=== PATIENT | female | born 1960 | race African-American/Black ===

== ENCOUNTER 2016-11-14 07:53 | Inpatient (IN) | payer MEDICAID ==
[~2016-11-14] VITALS: Ht 157.5 cm; Wt 54.4 kg
[~2016-11-14 07:53] MED LIST: VIC PO
[2016-11-14 08:00] VITALS: BP 135/89
--- NOTE | 2016-11-14 08:04 | NUR ---
Pt placed in bed 8.
[2016-11-14] MEDS ORDERED: NITROGLYCERIN 0.4 MG TAB SL ONE (08:10)
[2016-11-14] MEDS ORDERED: ASPIRIN 81 MG TAB.CHEW PO ONE (08:10)
--- NOTE | 2016-11-14 08:10 | NUR ---
55/F presents to the emergency department with c/o right upper chest pain radiating to right posterior shoulder for approximately the past 2 weeks. Pt states "I was moving the last couple of weeks. I don't know if that has anything to do with it." Patient describes pain as sharp, intermittent, worsening last night 04/30. Patient noted with facial grimacing, and restless. Denies sob. Denies N/V/D. Denies fever or chills. Pt states "I've never been sick like this before." Skin warm and dry, normal in color for ethnicity. Patient denies any medical hx. Hx of cocaine use x 30 years ago.
--- NOTE | 2016-11-14 08:19 | NUR ---
Patient being evaluated by Dr. Stanford at bedside.
--- NOTE | 2016-11-14 08:28 | NUR ---
X-Ray at bedside.
[2016-11-14 08:33] LABS: BASOPHILS # (AUTO) 0.1 K/uL (0.00-0.22); BASOPHILS % (AUTO) 2.1 % (0.0-2.0); EOSINOPHILS # (AUTO) 0.2 K/uL (0-0.4); EOSINOPHILS % (AUTO) 2.7 % (0.0-4.0); HEMATOCRIT 39.6 % (36-48); HEMOGLOBIN 13.1 g/dL (12.0-16.0); LYMPHOCYTES # (AUTO) 1.2 K/uL (2.5-16.5); LYMPHOCYTES % (AUTO) 18.3 % (20.5-51.1); MEAN CORPUSCULAR HEMOGLOBIN 30 pg (27-31); MEAN CORPUSCULAR HGB CONC 33 g/dL (33-37); MEAN CORPUSCULAR VOLUME 92 fL (80-94); MONOCYTES # (AUTO) 0.5 K/uL (0.8-1.0); MONOCYTES % (AUTO) 7.4 % (1.7-9.3); NEUTROPHILS # (AUTO) 4.5 K/uL (1.8-7.7); NEUTROPHILS % (AUTO) 69.5 % (42.2-75.2); PLATELET COUNT (AUTO) 322 K/uL (140-450); RED BLOOD CELL COUNT(AUTO) 4.31 MIL/uL (4.20-5.40); RED CELL DISTRIBUTION WIDTH 12.9 % (11.6-13.7); WHITE BLOOD COUNT (AUTO) 6.5 K/uL (4.8-10.8)
--- NOTE | 2016-11-14 08:47 | NUR ---
Consent for CT scan signed by patient.
[2016-11-14 09:02] LABS: ALBUMIN 4.2 g/dL (3.4-5.0); ANION GAP 9.8 (8-16); CALCIUM 9.4 mg/dL (8.5-10.1); CARBON DIOXIDE 31.2 mmol/L (21-32); CREATININE 0.9 mg/dL (0.6-1.3); TOTAL BILIRUBIN 0.3 mg/dL (0.0-1.0)
[2016-11-14 09:18] LABS: INR 1.1 (0.8-1.2); PARTIAL THROMBOPLASTIN TIME 28.5 secs (22-35.6); PROTHROMBIN TIME 10.1 secs (10.8-13.4)
--- NOTE | 2016-11-14 09:33 | NUR ---
Patient taken to CT via w/c.
--- NOTE | 2016-11-14 09:48 | NUR ---
Patient back from CT via wheelchair per tech.
[2016-11-14] MEDS ORDERED: KETOROLAC 30 MG/ML VIAL IVP ONE (09:55)
--- NOTE | 2016-11-14 10:21 | NUR ---
Patient appears to be resting comfortably in bed. Vital Signs within normal limits. Respirations even and unlabored.
--- NOTE | 2016-11-14 11:30 | NUR ---
Pt ambulated to restroom with steady gait.
--- NOTE | 2016-11-14 11:34 | NUR ---
Patient appears to be resting comfortably in bed. Vital Signs within normal limits. Respirations even and unlabored.
[2016-11-14] MEDS ORDERED: HYDROmorphone 1 MG/ML AMP IVP ONE (12:15)
[2016-11-14] MEDS ORDERED: ENOXAPARIN 40 MG/0.4 ML SYR SUBQ ONE (12:20)
--- NOTE | 2016-11-14 12:33 | NUR ---
Patient will be admitted to care of Dr. Monk. Admited to TELE. Will go to room 111-A. Belongings list completed. Report to Samy SORENSON.
--- NOTE | 2016-11-14 12:38 | NUR ---
MEDICATION ADMINISTERED ORDERED.
[2016-11-14 13:00] VITALS: BP 143/94
--- NOTE | 2016-11-14 13:04 | NUR ---
PT ARRIVED FROM ER VIA GURNEY. PT IS AAOX4, ON ROOM AIR PULSE OX 99%, IV TO RIGHT AC PATENT AND INTACT, SKIN INTACT. PT STATES NO CHEST PAIN OR SOB AT THIS TIME. INITIAL ASSESSMENT COMPLETED, REVIEWED PLAN OF CARE WITH PT, PT VERBALIZED UNDERSTANDING. ALL SAFETY PRECAUTIONS MET. ALL NEEDS MET CALL LIGHT WITHIN REACH. WILL CONTINUE TO MONITOR.
[2016-11-14] MEDS ORDERED: ONDANSETRON 4 MG/2 ML VIAL IVP PRN (14:20)
[2016-11-14] MEDS ORDERED: MORPHINE SULFATE 2 MG/ML SYR IVP PRN (14:20)
--- NOTE | 2016-11-14 15:15 | NUR ---
PT CURRENTLY VISITING WITH FAMILY, ALL NEEDS MET. PT STATES NO SOB OR PAIN AT THIS TIME. CALL LIGHT WITHIN REACH. WILL CONTINUE TO MONITOR.
[2016-11-14 16:00] VITALS: BP 148/79
--- NOTE | 2016-11-14 17:45 | NUR ---
CHECKED IN ON PT. NO S/S OF RESPIRATORY DISTRESS NOTED. ALL NEEDS MET, CALL LIGHT WITHIN REACH. WILL CONTINUE TO MONITOR.
--- NOTE | 2016-11-14 19:05 | NUR ---
ENDORSED PLAN OF CARE TO NIGHT PT IN STABLE CONDITION.
--- NOTE | 2016-11-14 19:30 | NUR ---
ASSUMED CARE OF PATIENT, AWAKE, ALERT AND ORIENTED NOTED. NO COMPLAINS. CALL LIGHT WITHIN REACH.
[2016-11-14 20:00] VITALS: BP 134/69
--- NOTE | 2016-11-14 20:00 | NUR ---
VITAL SIGNS STABLE. NO COMPLAINS. PLAN OF CARE DISCUSSED WITH PATIENT, VERBALIZED UNDERSTANDING WELL. CALL LIGHT WITHIN REACH.
[2016-11-14 20:40] LABS: CREATINE KINASE MB 1.1 ng/mL (0-3.6)
[2016-11-14] MEDS: ACETAMINOPHEN 325 MG TAB PO PRN (20:47)
[2016-11-14] MEDS: METOPROLOL 25 MG TAB PO SCH (20:47)
[2016-11-14] MEDS ORDERED: SIMVASTATIN 40 MG TAB PO SCH (21:00)
--- NOTE | 2016-11-15 | NUR ---
SLEEPING WELL. VITAL SIGNS STABLE. NPO NOW FOR FREDIISCAN IN AM. CALL LIGHT WITHIN REACH.
[2016-11-15 00:05] VITALS: BP 142/80
[2016-11-15 04:17] VITALS: BP 130/81
--- NOTE | 2016-11-15 04:18 | NUR ---
NPO FOR LEXISCAN. VITAL SIGNS STABLE. SLEEPING WELL. CALL LIGHT WITHIN REACH. NO COMPLAINS.
[2016-11-15] MEDS: ACETAMINOPHEN 325 MG TAB PO PRN (05:30)
[2016-11-15 06:28] LABS: BASOPHILS # (AUTO) 0.1 K/uL (0.00-0.22); BASOPHILS % (AUTO) 1.1 % (0.0-2.0); EOSINOPHILS # (AUTO) 0.1 K/uL (0-0.4); EOSINOPHILS % (AUTO) 1.6 % (0.0-4.0); HEMOGLOBIN 12.9 g/dL (12.0-16.0); LYMPHOCYTES % (AUTO) 29.1 % (20.5-51.1); MEAN CORPUSCULAR HEMOGLOBIN 31 pg (27-31); MEAN CORPUSCULAR HGB CONC 34 g/dL (33-37); MEAN CORPUSCULAR VOLUME 92 fL (80-94); MONOCYTES # (AUTO) 0.5 K/uL (0.8-1.0); MONOCYTES % (AUTO) 7.6 % (1.7-9.3); NEUTROPHILS # (AUTO) 4.1 K/uL (1.8-7.7); NEUTROPHILS % (AUTO) 60.6 % (42.2-75.2); PLATELET COUNT (AUTO) 298 K/uL (140-450); RED BLOOD CELL COUNT(AUTO) 4.11 MIL/uL (4.20-5.40); RED CELL DISTRIBUTION WIDTH 12.9 % (11.6-13.7)
[2016-11-15 06:50] LABS: ALBUMIN 3.9 g/dL (3.4-5.0); ANION GAP 14.3 (8-16); CALCIUM 9.4 mg/dL (8.5-10.1); CARBON DIOXIDE 26.5 mmol/L (21-32); CREATININE 0.9 mg/dL (0.6-1.3); POTASSIUM 3.8 mmol/L (3.5-5.1); TOTAL BILIRUBIN 0.6 mg/dL (0.0-1.0); TOTAL PROTEIN, SERUM 7.7 g/dL (6.4-8.2)
[2016-11-15 07:03] LABS: WHITE BLOOD COUNT (AUTO) 6.8 K/uL (4.8-10.8)
--- NOTE | 2016-11-15 07:16 | NUR ---
ENDORSED CARE AT BEDSIDE WITH MARTINA SORENSON, PATIENT STABLE CONDITION.
--- NOTE | 2016-11-15 07:17 | NUR ---
PT AWAKE ALERT AND ORIENTED X4, NO SIGNS OF ACUTE DISTRESS, BREATHING EVEN AND UNLABORED BILATERALLY, ABDOMEN SOFT AND FLAT WITH ACTIVE BOWEL SOUNDS IN ALL FOUR QUADRANTS, BOWEL AND BLADDER CONTINENCE, AMBULATORY, SKIN INTACT, IV PATENT NO REDNESS, COMPLAINT OF PAIN 8/10 IN RT SHOULDER AND RIGHT SIDE OF CHEST HOWEVER DOES NOT WANT PAIN MEDICATION AT THIS TIME, BED IN LOW POSITION WITH BILATERAL HALF SIDE RAILS UP, CALL LIGHT WITHIN REACH. PT. TO GO FOR LEXISCAN STRESS TEST THIS MORNING.
[2016-11-15 08:00] VITALS: BP 126/94
[2016-11-15] MEDS: METOPROLOL 25 MG TAB PO SCH (08:56)
[2016-11-15] MEDS ORDERED: ASPIRIN 81 MG TAB.CHEW PO SCH (09:00)
[2016-11-15] MEDS ORDERED: ENOXAPARIN 40 MG/0.4 ML SYR SUBQ SCH ×2 (09:00)
[2016-11-15] MEDS ORDERED: REGADENOSON 0.4 MG/5 ML SYR IV SCH (09:00)
--- NOTE | 2016-11-15 09:02 | NUR ---
PATIENT HAS BEEN SCREENED AND CATEGORIZED MODERATE NUTRITION RISK. PATIENT WILL BE SEEN WITHIN 3-5 DAYS OF ADMISSION. 11/17/16-11/19/[address]
--- NOTE | 2016-11-15 10:05 | NUR ---
NOTIFIED BY MABLE MOON TO BE DONE AT 1230, PT MADE AWARE.
--- NOTE | 2016-11-15 11:00 | NUR ---
PT AWAKE ALERT AND RESPONSIVE, NO SIGNS OF ACUTE DISTRESS. WENT OFF UNIT FOR LEXISCAN.
--- NOTE | 2016-11-15 13:22 | NUR ---
PATIENT BACK ON UNIT FROM [facility], AWAKE AND ALERT, NO SIGNS OF ACUTE DISTRESS. WILL RESUME CURRENT PLAN OF CARE.
--- NOTE | 2016-11-15 13:42 | NUR ---
SPOKE WITH DR. CHAND, MAY RESUME CARDIAC DIET TODAY. NOTED AND CARRIED OUT.
[2016-11-15 15:14] LABS: CREATINE KINASE MB 0.9 ng/mL (0-3.6)
--- NOTE | 2016-11-15 16:05 | NUR ---
PT AWAKE AND ALERT, NO SIGNS OF ACUTE DISTRESS, DENIES PAIN AT THIS TIME. PROVIDED WRITTEN AND VERBAL INSTRUCTIONS TO PATIENT TO FOLLOW UP WITH PCP WITHIN 1 WEEK OF DISCHARGE AND SIGNS AND SYMPTOMS OF DIAGNOSIS EXACERBATION AND INFECTION. PATIENT VERBALIZED UNDERSTANDING. D/C'D TELE MONITOR, IV AND WRIST BANDS. PATIENT TOOK ALL PERSONAL BELONGINGS. WALKED PATIENT OUT TO LOBBY TO GO HOME WITH FAMILY VIA PRIVATE AUTO.
== END 2016-11-15 16:05 | disposition home or self-care (01) | DRG 198 ==
LOC: MED 07:53 → MTU 12:39
PROVIDERS: ADMIT Hospitalist; ATTEND Hospitalist
DX: I20.9 Angina pectoris, unspecified (principal); F14.21 Cocaine dependence, in remission; Z87.898 Personal history of other specified conditions
CPT/HCPCS: 36415; 71010; 71275; 80053; 82550; 82553; 83880; 84484; 85025; 85610; 85730; 87081; 93005; 93017; 96372; 96374; 96375; 99291; A9500; A9502; J1170; J1650; J1885; J2270; J2785; Q0092; Q9967

== ENCOUNTER 2017-10-29 18:57 | Emergency (ER) | payer MEDICAID ==
[~2017-10-29] VITALS: Ht 160 cm; Wt 54.4 kg
[2017-10-29 19:01] VITALS: BP 130/75
--- NOTE | 2017-10-29 19:10 | NUR ---
56 Y/O F W/C/O R HAND AND R LEG PAIN X 2 DAYS. DENIES ANY INJURY. NO OTHER S/S OF DISTRESS NOTED. PA MADE AWARE.
--- NOTE | 2017-10-29 19:40 | NUR ---
PT AWATING FOR TX. NO S/S OF DISTRESS NOTED AT THE MOMENT.
[2017-10-29] MEDS ORDERED: traMADol 50 MG TAB PO ONE (19:55)
[2017-10-29 20:18] VITALS: BP 143/70
--- NOTE | 2017-10-29 20:18 | NUR ---
Patient discharged with v/s stable. Written and verbal after care instructions given and explained. Patient alert, oriented and verbalized understanding of instructions. Ambulatory with steady gait. All questions addressed prior to discharge. ID band removed. Patient advised to follow up with PMD. Rx of IBUPROFENA AND TRAMADOL given. Patient educated on indication of medication including possible reaction and side effects. Opportunity to ask questions provided and answered.
== END 2017-10-29 20:18 | disposition home or self-care (01) ==
LOC: MED 18:57
DX: M25.531 Pain in right wrist (principal); R03.0 Elevated blood-pressure reading, without diagnosis of hypertension
CPT/HCPCS: 99283

== ENCOUNTER 2017-11-10 14:55 | Emergency (ER) | payer MEDICAID ==
[~2017-11-10] VITALS: Ht 160 cm; Wt 54.4 kg
[2017-11-10 15:05] VITALS: BP 121/78
--- NOTE | 2017-11-10 15:10 | NUR ---
56F BIB SELF WITH C/O 9/10 "TINGLING/SHARP" CONSTANT RIGHT HAND PAIN X 1 WEEK; PT STS SHE WAS DX WITH CARPAL TUNNEL BY PMD AND SENT HOME WITH PRESCRIPTION OF CELEXA. MILD SWELLING TO RIGHT MEDIAL HAND. CMS INTACT. PT DENIES ANY RECENT INJURY. PT IS AOX4 WITH STEADY GAIT. RR ARE EVEN AND UNLABORED. NO ACUTE DISTRESS NOTED. AWAITING FOR ER MD WELDON. ALL NEEDS MET AT THIS TIME. WILL CONTINUE TO MONITOR.
[2017-11-10 15:44] VITALS: BP 121/78
--- NOTE | 2017-11-10 15:44 | NUR ---
Patient discharged with v/s stable. Written and verbal after care instructions given and explained by er md Chase. Patient alert, oriented and verbalized understanding of instructions. Ambulatory with steady gait. All questions addressed prior to discharge by er md Chase. ID band removed. Patient advised to follow up with PMD. Rx of Naproxen given by er md Chase. Patient educated on indication of medication including possible reaction and side effects er md Chase. Opportunity to ask questions provided and answered jose Chase.
== END 2017-11-10 15:44 | disposition home or self-care (01) ==
LOC: MED 14:55
DX: M65.4 Radial styloid tenosynovitis [de Quervain] (principal); G56.01 Carpal tunnel syndrome, right upper limb
CPT/HCPCS: 99282

== ENCOUNTER 2018-07-25 13:15 | Emergency (ER) | payer MEDICAID, OTHER ==
[~2018-07-25] VITALS: Ht 160 cm; Wt 60.0 kg
[2018-07-25 13:28] VITALS: BP 119/94
--- NOTE | 2018-07-25 13:28 | NUR ---
57/F BIB SELF, C/O OF HEADACHE SINCE 5 AM THIS MORNING, PAIN IS A SULL ACHE 6/10, WORSENS WITH BRIGHT LIGHTS. REPORTS RIGHT LEG PAIN, TINGLING AND NUMBNESS IN BOTH HAND AND WRIST X 2 WEEKS. PATIENT STATES SHE HAS BEEN FEELING STRESS. PATIENT DENIES N/V/D. SOB, CHEST PAIN, AND NO EDEMA NOTED. PATIENT HAS BILATERAL STRONG PULSES PRESENT, EQUAL STREGNTHS, LESS THAN 3 SEC CAP REFILL, BLE EQUAL IN STRENGTH. AOX4, STEADY GAIT, SAFETY PRECAUTIONS IN PLACE.
[2018-07-25 13:56] VITALS: BP 119/94
--- NOTE | 2018-07-25 13:56 | NUR ---
Patient discharged with v/s stable. Written and verbal after care instructions given and explained. Patient verbalized understanding. Ambulatory with steady gait. All questions addressed prior to discharge. Advised to follow up with PMD.
== END 2018-07-25 13:56 | disposition home or self-care (01) ==
LOC: MED 13:15
DX: R20.2 Paresthesia of skin (principal); R53.1 Weakness; F17.210 Nicotine dependence, cigarettes, uncomplicated; Z90.710 Acquired absence of both cervix and uterus
CPT/HCPCS: 82948; 99281

== ENCOUNTER 2019-01-04 11:16 | Emergency (ER) | payer MEDICAID ==
[~2019-01-04] VITALS: Ht 160 cm; Wt 54.4 kg
[2019-01-04 11:20] VITALS: BP 129/86
--- NOTE | 2019-01-04 11:28 | NUR ---
PT AMB TO BED 12
--- NOTE | 2019-01-04 11:32 | NUR ---
58 Y FEMALE BIB SELF C/O DIZZINESS AND HEADACHE, R LOWER BACK PAIN X YESTERDAY. PAIN 9/10. DENIES N/V. BM LOOSE STOOL THIS AM. DENIES DYSURIA. ABDOMEN SOFT AND ROUND, BOWEL SOUNDS ACTIVE IN ALL 4 QUADRANTS. NEURO INTACT. 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 FACIAL SYMMETRY. PUPILS EUFEMIA. MEMORY INTACT. DENIES BLURRY VISION. VSS AT THIS TIME. PT AA0X4. BED IS DOWN, LOCKED, BED RAIL X 1, ERMD TO SEE PT. DENIES MED HX
[2019-01-04] MEDS ORDERED: hydrOXYzine HCL 25 MG TAB PO ONE (11:45)
[2019-01-04] MEDS ORDERED: MORPHINE SULFATE 4 MG/ML SYR IM ONE (11:45)
[2019-01-04] MEDS ORDERED: MECLIZINE 25 MG TAB PO ONE (11:45)
[2019-01-04] MEDS ORDERED: METOCLOPRAMIDE 10 MG/2 ML INJ VIAL IM ONE (11:45)
--- NOTE | 2019-01-04 12:13 | NUR ---
VSS AT THIS TIME. PT AA0X4. SITTING IN BED ON PHONE.
[2019-01-04 12:43] LABS: APPEARANCE,URINE SL CLOUDY (CLEAR); BILIRUBIN,URINE NEGATIVE (NEGATIVE); BLOOD, URINE NEGATIVE (NEGATIVE); COLOR,URINE YELLOW (YELLOW); LEUKOCYTE ESTERASE ,URINE NEGATIVE (NEGATIVE); NITRITE, URINE NEGATIVE (NEGATIVE); PH,URINE 7.5 (5.0-9.0); UGLUCOSE NEGATIVE (NEGATIVE)
[2019-01-04 12:49] LABS: BARBITURATE, URINE POS. ng/ml (NEG <=200); BENZODIAZEPINE, URINE NEG. ng/mL (NEG <=200); CANNABINOID, URINE POS. ng/mL (NEG <=50); COCAINE, URINE NEG. ng/mL (NEG <=300); OPIATE, URINE NEG. ng/mL (NEG <=2000); PHENCYCLIDINE SCREEN,URINE NEG. ng/mL (NEG <=25)
--- NOTE | 2019-01-04 12:59 | NUR ---
PT AT CT
[2019-01-04 13:10] LABS: RBC,URINE 0-5 /HPF (0-5); WBC,URINE 0-5 /HPF (0-5)
--- NOTE | 2019-01-04 13:49 | NUR ---
pt sleeping in bed, arousable to name. pt aa0x4.
--- NOTE | 2019-01-04 13:50 | NUR ---
dr keen re-evaluating pt
--- NOTE | 2019-01-04 13:51 | NUR ---
vss at this time. pain 08/31.
[2019-01-04 14:25] VITALS: BP 135/83
--- NOTE | 2019-01-04 14:25 | NUR ---
Patient discharged with v/s stable. Written and verbal after care instructions given and explained. Patient alert, oriented and verbalized understanding of instructions. Ambulatory with steady gait. All questions addressed prior to discharge. ID band removed. Patient advised to follow up with PMD. Rx of ANTIVERT given. Patient educated on indication of medication including possible reaction and side effects. Opportunity to ask questions provided and answered. PT INSTRUCTED NOT TO DRIVE WHEN SHE EXPERIENCES A DIZZY SPELL.
== END 2019-01-04 14:25 | disposition home or self-care (01) ==
LOC: MED 11:16
DX: R42 Dizziness and giddiness (principal); R51 Headache; M54.6 Pain in thoracic spine; F12.90 Cannabis use, unspecified, uncomplicated; Z87.891 Personal history of nicotine dependence; Z79.899 Other long term (current) drug therapy
CPT/HCPCS: 70450; 80305; 81001; 87086; 96372; 99284; J2270; J2765; J8597